=== PATIENT | female | born 2000 | race African-American/Black ===

== ENCOUNTER 2020-04-18 08:36 | Emergency (ER) | payer OTHER, SELFPAY ==
[2020-04-18 08:44] VITALS: BP 159/120; PULSE 86; RESP 18; TEMP 36.5; O2SAT 96; BMI 38.3
--- NOTE | 2020-04-18 09:30 | W.ED.EXTPRO ---
HPI - Extremity Problem General: Chief complaint: Extremity Injury, Upper Stated complaint: Pain in Palms of Both Hands Time Seen by Provider: 04/18/20 08:38 History of Present Illness: HPI Narrative: 19-year-old female presents complaining of bilateral wrist pain radiates a little bit proximally more intensely into the thumb and index finger. 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 She pain radiating up proximally into the forearm. She also has a ganglion cyst on the dorsum of the left wrist. She is not really taking any for this. MD Complaint: extremity pain Onset (ago): day(s) Pain Consistency: intermittent Location: left, right and upper extremity Quality: sharp Radiation: none Relieving factors: rest Exacerbating factors: other (Activity) Associated symptoms: Deny arthralgias, chest pain, fever(s), myalgias, rash or short of breath Review of Systems Const: Denies: fever(s), chills, body aches, change in appetite, fatigue or malaise ENMT: Denies: throat pain, ear or mastoid pain, nasal discharge or nasal congestion Card: Denies: chest pain Resp: Denies: dyspnea, productive cough or non-productive cough GI: Denies: abdominal pain, nausea, vomiting, hematemesis, coffee ground emesis, diarrhea, constipation, bloating, hematochezia or melena : Denies: flank pain, difficulty voiding, dysuria, urinary frequency or urinary urgency Skin/Breast: Denies: rash or pruritus Physical Exam Const: COMMON NORMALS: no acute distress GENERAL APPEARANCE: cooperative and comfortable ORIENTATION/CONSCIOUSNESS: Yes awake, Yes oriented to person, Yes oriented to place and Yes oriented to time HENMT: COMMON NORMALS: normocephalic, atraumatic and hearing grossly normal bilaterally HEAD & SCALP: normocephalic and atraumatic Neck/C-Spine: COMMON NORMALS: no JVD Resp: COMMON NORMALS: normal respiratory effort, No retractions, No use of accessory muscles and clear to auscultation bilaterally AUSCULTATION: clear to auscultation bilaterally Cardio: COMMON NORMALS: no JVD, regular rate, regular rhythm and No murmurs present (Cardio) RATE: regular rate RHYTHM: regular rhythm GI: COMMON NORMALS: Soft to palpation and No hepatosplenomegaly present AUSCULTATION: Yes normoactive bowel sounds PALPATION: Yes Soft to palpation, No Tenderness to palpation present (GI), No Guarding due to palpation present (GI) and Yes No hepatosplenomegaly present Extremity: COMMON NORMALS: normal to inspection, capillary refill normal, no clubbing, cyanosis or edema, no calf tenderness and no pedal edema NARRATIVE EXTREMITY EXAM: Tinel's positive Phalen's negative sensation normal to sharp touch in all distributions of the hands bilaterally. Neuro: SENSORIUM/ORIENTATION: Yes oriented to person, Yes oriented to place and Yes oriented to time Skin: COMMON NORMALS: no rashes or lesions noted GENERAL SKIN EXAM: no rashes or lesions noted Course Vital Signs: Vital signs: Vital Signs Temperature 97.7 F 04/18/20 08:44 Pulse Rate 86 04/18/20 08:44 Respiratory Rate 18 04/18/20 08:44 Blood Pressure 159/120 04/18/20 08:44 Pulse Oximetry 96 04/18/20 08:44 Discharge Plan Discharge Patient Disposition: Home Clinical Impression: Bilateral carpal tunnel syndrome, Ganglion cyst of dorsum of left wrist Condition: Stable Prescriptions: New diclofenac sodium 75 mg tablet,delayed release (DR/EC) 75 mg PO Q12H PRN (Reason: pain) Qty: 20 RF: 0 No Action ibuprofen 200 mg Tablet 200 mg PO PRN RF: 0 Calcium + Vitamin D 2 cap PO DAILY RF: 0 Discharge Orders: Discharge Order (Routine); Ordered 04/18/20 Ordered By: Richie Aguirre Activity Restrictions/Additional Instructions: 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 Case management will call to make arrangements for you to see one of the orthopedist regarding your carpal tunnel as well as a ganglion cyst on your wrist. Coding Level of Care Code ED To[employer] Press Operator Automatic for Zakia Jessica
--- NOTE | 2020-04-18 12:44 | DCPLANNER ---
clinical rn manager had message to schedule a follow up appointment for patient with ortho. clinical rn manager called the ortho clinic, spoke with Radha, gave clinic patients information. clinical rn manager was told that patients information would be printed and reviewed. Clinic will call patient with appointment information.
--- NOTE | 2020-04-24 07:39 | DCPLANNER ---
Patient has a follow up appointment scheduled for Thursday, April 25, 2020 at 2:00 with yasmine Charles. Clinic will call patient with appointment information.
--- NOTE | 2020-05-22 14:54 | DCPLANNER ---
Patient had a follow up appointment scheduled for 04.25.20 with ortho - patient did attend appointment.
== END 2020-04-18 09:38 | disposition home or self-care (01) ==
PROVIDERS: Emergency Provider Family Medicine
DX: G56.03 Carpal tunnel syndrome, bilateral upper limbs (principal); M67.432 Ganglion, left wrist; Z79.1 Long term (current) use of non-steroidal anti-inflammatories (NSAID)
CPT/HCPCS: 12345; 99281

== ENCOUNTER → 2020-04-24 14:30 | Outpatient (BNVA) | payer OTHER, SELFPAY | PROVIDERS: Referring Provider Family Medicine; Visit Provider Orthopaedic Surgery | DX: M25.531 Pain in right wrist (principal); M25.532 Pain in left wrist | CPT/HCPCS: 73110 ==